=== PATIENT | male | born 1965 | race Hispanic/Latino ===

== ENCOUNTER 2021-06-23 10:35 | Inpatient (IN) | payer SELFPAY ==
[2021-06-23] VITALS (7 sets, daily range): BP systolic 131–187; BP diastolic 71–126
[~2021-06-23] VITALS: Ht 172.7 cm; Wt 59.0 kg
[2021-06-23] MEDS ORDERED: LORAZEPAM 2 MG/ML 1 ML VIAL ONE (10:49)
[2021-06-23] MEDS ORDERED: PANTOPRAZOLE 40 MG/VIAL IVP SCH (11:06)
[2021-06-23] MEDS ORDERED: OCTREOTIDE ACETATE 100 MCG/ML AMP IVP SCH (11:07)
[2021-06-23 11:11] LABS: BASOPHILS % (AUTO) 0.2 % (0.0-5.0); HEMATOCRIT 47.7 % (42-54); LYMPHOCYTES % (AUTO) 5.4 % (21.0-51.0); MEAN CORPUSCULAR HEMOGLOBIN 32.4 pg (27.0-33.0); MEAN CORPUSCULAR HGB CONC 32.9 g/dL (32.0-36.0); MEAN CORPUSCULAR VOLUME 98.4 fL (79-99); MONOCYTES % (AUTO) 8.4 % (3.0-13.0); NEUTROPHILS % (AUTO) 85.7 % (40.0-77.0); PLATELET COUNT (AUTO) 164 K/uL (130-400); RED BLOOD CELL COUNT(AUTO) 4.85 MIL/uL (4.50-6.20); RED CELL DISTRIBUTION WIDTH 12.5 % (11.0-15.5); WHITE BLOOD COUNT (AUTO) 15.4 K/uL (4.8-10.8)
[2021-06-23] MEDS ORDERED: OCTREOTIDE ACETATE 1,000 MCG in DEXTROSE 5%-WATER 195 ML IV SCH (11:30)
[2021-06-23] MEDS ORDERED: 0.9%NACL 100ML 100 ML ONE (11:32)
[2021-06-23 11:33] LABS: ALBUMIN 3.9 g/dL (3.5-5.0); BILIRUBIN,TOTAL 1.8 mg/dL (0.2-1.0); CREATININE 1.3 mg/dL (0.5-1.5); POTASSIUM 4.1 mmol/L (3.5-5.1); TOTAL PROTEIN, SERUM 9.5 g/dL (6.0-8.3)
[2021-06-23 11:37] LABS: INR 1.05 (0.85-1.15); PROTHROMBIN TIME 11.4 SEC (9.6-11.6)
[2021-06-23 11:38] LABS: PARTIAL THROMBOPLASTIN TIME 27.2 SEC (26.3-35.5)
[2021-06-23] MEDS: PANTOPRAZOLE 40MG INJ 80 MG in 0.9%NACL 100ML 100 ML IV SCH ×2 (11:45→21:32)
[2021-06-23] MEDS: ACETAMINOPHEN 500 MG TABLET PO ONE ×2 (13:30→15:13)
[2021-06-23] MEDS ORDERED: ZOSYN 3.375GM+NS 50ML 50 ML IV ONE ×2 (13:30→15:05)
[2021-06-23] MEDS ORDERED: ACETAMINOPHEN 500 MG TABLET ONE (15:06)
[2021-06-23] MEDS ORDERED: ACETAMINOPHEN 650 MG SUPPOSITORY RC ONE (15:36)
[2021-06-23] MEDS ORDERED: ACETAMINOPHEN 650 MG SUPPOSITORY RC STA (15:42)
[2021-06-23 16:05] LABS: HEMATOCRIT 45.7 % (42-54); MEAN CORPUSCULAR HEMOGLOBIN 31.4 pg (27.0-33.0); MEAN CORPUSCULAR HGB CONC 33.7 g/dL (32.0-36.0); MEAN CORPUSCULAR VOLUME 93.3 fL (79-99); PLATELET COUNT (AUTO) 139 K/uL (130-400); RED CELL DISTRIBUTION WIDTH 12.6 % (11.0-15.5); WHITE BLOOD COUNT (AUTO) 12.2 K/uL (4.8-10.8)
[2021-06-23 17:35] LABS: BAND NEUTROPHILS % (MANUAL) 1 % (0-2); LYMPHOCYTES % (MANUAL) 5 % (22-44); MAN.DIFF COMMENT-IMPRESSION MANUAL DIFFERENTIAL; MONOCYTES % (MANUAL) 2 % (2-9); SEGMENTED NEUTROPHILS % 92 % (40-70)
[2021-06-23 17:36] LABS: PLATELET MORPHOLOGY COMMENT ADEQUATE
[2021-06-23] MEDS ORDERED: LORAZEPAM 2 MG/ML 1 ML VIAL IM PRN (18:30)
[2021-06-23] MEDS: ZOSYN 3.375GM+NS 50ML 50 ML IV SCH (21:32)
[2021-06-23 22:39] LABS: APPEARANCE,URINE Clear (CLEAR); BILIRUBIN,URINE Negative (NEGATIVE); COLOR,URINE Yellow (YELLOW); GLUCOSE, URINE (UA) Negative (NEGATIVE); KETONES,URINE Negative (NEGATIVE); LEUKOCYTE ESTERASE ,URINE Negative (NEGATIVE); NITRATE,URINE Negative (NEGATIVE); OCCULT BLOOD,URINE Trace (NEGATIVE); PH,URINE 5.5 (5.0-8.0); PROTEIN,URINE Negative (NEGATIVE); UROBILINOGEN,URINE 0.2 mg/dL (0.2-1.0)
[2021-06-23 22:53] LABS: RBC,URINE 0-1 /HPF (0-1); WBC,URINE None Seen /HPF (0-1)
[2021-06-23 22:54] LABS: BACTERIA,URINE Rare /HPF (None Seen); SQUAMOUS EPITHELIAL CELL,UR None Seen /HPF (0-2)
[2021-06-24] VITALS (10 sets, daily range): BP systolic 132–158; BP diastolic 72–97
[2021-06-24] MEDS: ZOSYN 3.375GM+NS 50ML 50 ML IV SCH ×3 (06:16→21:28)
[2021-06-24] MEDS ORDERED: OCTREOTIDE 1,250 MCG /NS 250ML (DRIP) IV SCH ×2 (07:30)
[2021-06-24] MEDS: PANTOPRAZOLE 40MG INJ 80 MG in 0.9%NACL 100ML 100 ML IV SCH (08:04)
[2021-06-24] MEDS ORDERED: 0.9%NACL 50ML 50 ML IV ONE ×3 (08:05→16:36)
[2021-06-24] MEDS: M.V.I. IV [ADULT] 10 ML, FOLIC ACID 1 MG, THIAMINE HCL 100 MG in 0.9%NACL 1000ML 1,000 ML IV SCH (09:54)
[2021-06-24] MEDS ORDERED: LEVETIRACETAM 500 MG/5 ML SD VIAL IV ONE (11:45)
[2021-06-24] MEDS ORDERED: GADOTERATE MEGLUMINE 10 MMOL/20 ML VIAL IV ONE (15:41)
[2021-06-24] MEDS ORDERED: GADOTERATE MEGLUMINE 5 MMOL/10 ML VIAL IV ONE (15:42)
[2021-06-24] MEDS ORDERED: FOLIC ACID 1 MG TABLET PO ONE (16:00)
[2021-06-24] MEDS: INSULIN HUMULIN R 100 UNIT/ML 3ML SQ SCH ×2 (16:30→21:29)
[2021-06-24 16:39] LABS: BASOPHILS % (AUTO) 0.4 % (0.0-5.0); EOSINOPHILS % (AUTO) 1.3 % (0.0-8.0); LYMPHOCYTES % (AUTO) 17.5 % (21.0-51.0); MEAN CORPUSCULAR HEMOGLOBIN 31.8 pg (27.0-33.0); MEAN CORPUSCULAR HGB CONC 33.3 g/dL (32.0-36.0); MEAN CORPUSCULAR VOLUME 95.4 fL (79-99); MONOCYTES % (AUTO) 9.5 % (3.0-13.0); PLATELET COUNT (AUTO) 124 K/uL (130-400); RED BLOOD CELL COUNT(AUTO) 4.09 MIL/uL (4.50-6.20); RED CELL DISTRIBUTION WIDTH 12.5 % (11.0-15.5); WHITE BLOOD COUNT (AUTO) 7.7 K/uL (4.8-10.8)
[2021-06-24] MEDS: THIAMINE HCL 100 MG TABLET PO SCH (16:50)
[2021-06-24] MEDS: SUCRALFATE 1 GM TABLET PO SCH ×2 (16:50→22:54)
[2021-06-24] MEDS: CEFTRIAXONE 2GM VIAL IVP SCH (16:51)
[2021-06-24 16:55] LABS: BILIRUBIN,TOTAL 1.5 mg/dL (0.2-1.0); CREATININE 0.9 mg/dL (0.5-1.5); POTASSIUM 3.1 mmol/L (3.5-5.1); TOTAL PROTEIN, SERUM 7.8 g/dL (6.0-8.3)
[2021-06-24 16:58] LABS: HEMOGLOBIN A1C 6.2 % (4.0-6.0)
[2021-06-24] MEDS: PANTOPRAZOLE 40 MG/VIAL IVP SCH (21:28)
[2021-06-24] MEDS: LEVETIRACETAM 500 MG TABLET PO SCH (21:28)
[2021-06-24] MEDS: CHLORDIAZEPOXIDE HCL 25 MG CAP PO SCH (21:28)
[2021-06-24] MEDS ORDERED: POTASSIUM CHLORIDE 20MEQ/100ML 100 ML IV PRN (22:00)
[2021-06-24] MEDS ORDERED: LIDOCAINE HCL-MPF 1% 2ML VIAL IV PRN (22:00)
[2021-06-24] MEDS: KCL 20 MEQ ERTAB PO PRN (22:54)
[2021-06-24] MEDS: METRONIDAZOLE 500MG/100ML BAG 100 ML IVPB SCH (22:54)
[2021-06-25] VITALS (7 sets, daily range): BP systolic 119–140; BP diastolic 69–79
[2021-06-25] MEDS ORDERED: 0.9%NACL 50ML 50 ML IV ONE (05:07)
[2021-06-25] MEDS: ZOSYN 3.375GM+NS 50ML 50 ML IV SCH ×3 (05:17→21:49)
[2021-06-25] MEDS: SUCRALFATE 1 GM TABLET PO SCH ×4 (05:17→22:53)
[2021-06-25] MEDS: METRONIDAZOLE 500MG/100ML BAG 100 ML IVPB SCH ×3 (07:01→22:53)
[2021-06-25] MEDS: INSULIN HUMULIN R 100 UNIT/ML 3ML SQ SCH ×4 (07:30→21:00)
[2021-06-25 07:40] LABS: BASOPHILS % (AUTO) 0.5 % (0.0-5.0); EOSINOPHILS % (AUTO) 3.7 % (0.0-8.0); HEMATOCRIT 36.5 % (42-54); LYMPHOCYTES % (AUTO) 13.6 % (21.0-51.0); MEAN CORPUSCULAR HEMOGLOBIN 31.4 pg (27.0-33.0); MEAN CORPUSCULAR HGB CONC 32.9 g/dL (32.0-36.0); MEAN CORPUSCULAR VOLUME 95.5 fL (79-99); MONOCYTES % (AUTO) 11.5 % (3.0-13.0); NEUTROPHILS % (AUTO) 70.3 % (40.0-77.0); PLATELET COUNT (AUTO) 141 K/uL (130-400); RED BLOOD CELL COUNT(AUTO) 3.82 MIL/uL (4.50-6.20); RED CELL DISTRIBUTION WIDTH 12.2 % (11.0-15.5); WHITE BLOOD COUNT (AUTO) 7.6 K/uL (4.8-10.8)
[2021-06-25 08:02] LABS: ALBUMIN 2.8 g/dL (3.5-5.0); BILIRUBIN,TOTAL 1.1 mg/dL (0.2-1.0); POTASSIUM 3.4 mmol/L (3.5-5.1); TOTAL PROTEIN, SERUM 7.2 g/dL (6.0-8.3)
[2021-06-25] MEDS: FOLIC ACID 1 MG TABLET PO SCH (09:26)
[2021-06-25] MEDS: PANTOPRAZOLE 40 MG/VIAL IVP SCH ×2 (09:26→21:49)
[2021-06-25] MEDS: CHLORDIAZEPOXIDE HCL 25 MG CAP PO SCH ×2 (09:30→21:49)
[2021-06-25] MEDS: THIAMINE HCL 100 MG TABLET PO SCH (09:30)
[2021-06-25] MEDS: M.V.I. IV [ADULT] 10 ML, FOLIC ACID 1 MG, THIAMINE HCL 100 MG in 0.9%NACL 1000ML 1,000 ML IV SCH (09:30)
[2021-06-25] MEDS: LEVETIRACETAM 500 MG TABLET PO SCH ×2 (09:30→21:49)
[2021-06-25] MEDS: CEFTRIAXONE 2GM VIAL IVP SCH (16:00)
[2021-06-25] MEDS: POTASSIUM CHLORIDE 10% ELIXIR 20 MEQ/15 ML UDCUP PO PRN (21:49)
[2021-06-26] VITALS (7 sets, daily range): BP systolic 104–140; BP diastolic 62–76
[2021-06-26] MEDS: SUCRALFATE 1 GM TABLET PO SCH ×4 (05:01→22:13)
[2021-06-26] MEDS: METRONIDAZOLE 500MG/100ML BAG 100 ML IVPB SCH ×3 (05:20→22:14)
[2021-06-26] MEDS: ZOSYN 3.375GM+NS 50ML 50 ML IV SCH ×3 (05:20→21:10)
[2021-06-26] MEDS: INSULIN HUMULIN R 100 UNIT/ML 3ML SQ SCH ×4 (05:27→21:22)
[2021-06-26 06:29] LABS: BASOPHILS % (AUTO) 0.5 % (0.0-5.0); EOSINOPHILS % (AUTO) 5.5 % (0.0-8.0); HEMATOCRIT 36.5 % (42-54); LYMPHOCYTES % (AUTO) 15.5 % (21.0-51.0); MEAN CORPUSCULAR HEMOGLOBIN 31.8 pg (27.0-33.0); MEAN CORPUSCULAR HGB CONC 33.2 g/dL (32.0-36.0); MEAN CORPUSCULAR VOLUME 95.8 fL (79-99); MONOCYTES % (AUTO) 12.7 % (3.0-13.0); NEUTROPHILS % (AUTO) 65.5 % (40.0-77.0); PLATELET COUNT (AUTO) 120 K/uL (130-400); RED BLOOD CELL COUNT(AUTO) 3.81 MIL/uL (4.50-6.20); RED CELL DISTRIBUTION WIDTH 12.4 % (11.0-15.5); WHITE BLOOD COUNT (AUTO) 6.4 K/uL (4.8-10.8)
[2021-06-26 06:45] LABS: ALBUMIN 2.8 g/dL (3.5-5.0); CREATININE 0.9 mg/dL (0.5-1.5); POTASSIUM 3.4 mmol/L (3.5-5.1); TOTAL PROTEIN, SERUM 7.2 g/dL (6.0-8.3)
[2021-06-26] MEDS: KCL 20 MEQ ERTAB PO PRN (06:51)
[2021-06-26] MEDS: POTASSIUM CHLORIDE 10% ELIXIR 20 MEQ/15 ML UDCUP PO PRN (06:55)
[2021-06-26] MEDS: PANTOPRAZOLE 40 MG/VIAL IVP SCH ×2 (09:04→21:10)
[2021-06-26] MEDS: LEVETIRACETAM 500 MG TABLET PO SCH ×2 (09:05→21:11)
[2021-06-26] MEDS: CHLORDIAZEPOXIDE HCL 25 MG CAP PO SCH ×2 (09:05→21:11)
[2021-06-26] MEDS: FOLIC ACID 1 MG TABLET PO SCH (09:05)
[2021-06-26] MEDS: THIAMINE HCL 100 MG TABLET PO SCH (09:05)
[2021-06-26] MEDS: CEFTRIAXONE 2GM VIAL IVP SCH (15:28)
[2021-06-27 00:03] VITALS: BP 105/61
[2021-06-27 04:02] VITALS: BP 133/73
[2021-06-27] MEDS: SUCRALFATE 1 GM TABLET PO SCH ×2 (04:33→10:28)
[2021-06-27] MEDS: ZOSYN 3.375GM+NS 50ML 50 ML IV SCH ×2 (04:34→13:21)
[2021-06-27 04:45] LABS: BASOPHILS % (AUTO) 0.4 % (0.0-5.0); EOSINOPHILS % (AUTO) 4.9 % (0.0-8.0); LYMPHOCYTES % (AUTO) 25.4 % (21.0-51.0); MEAN CORPUSCULAR HEMOGLOBIN 31.7 pg (27.0-33.0); MEAN CORPUSCULAR HGB CONC 32.9 g/dL (32.0-36.0); MEAN CORPUSCULAR VOLUME 96.3 fL (79-99); MONOCYTES % (AUTO) 16.6 % (3.0-13.0); NEUTROPHILS % (AUTO) 52.4 % (40.0-77.0); PLATELET COUNT (AUTO) 133 K/uL (130-400); RED BLOOD CELL COUNT(AUTO) 3.53 MIL/uL (4.50-6.20); RED CELL DISTRIBUTION WIDTH 12.6 % (11.0-15.5); WHITE BLOOD COUNT (AUTO) 6.7 K/uL (4.8-10.8)
[2021-06-27 05:06] LABS: ALBUMIN 2.6 g/dL (3.5-5.0); BILIRUBIN,TOTAL 0.7 mg/dL (0.2-1.0); POTASSIUM 3.3 mmol/L (3.5-5.1); TOTAL PROTEIN, SERUM 6.6 g/dL (6.0-8.3)
[2021-06-27] MEDS: INSULIN HUMULIN R 100 UNIT/ML 3ML SQ SCH ×2 (06:25→11:30)
[2021-06-27] MEDS: METRONIDAZOLE 500MG/100ML BAG 100 ML IVPB SCH ×2 (06:26→13:21)
[2021-06-27] MEDS ORDERED: KCL 20 MEQ ERTAB PO SCH (08:00)
[2021-06-27 08:22] VITALS: BP 135/75
[2021-06-27] MEDS: CHLORDIAZEPOXIDE HCL 25 MG CAP PO SCH (08:34)
[2021-06-27] MEDS: FOLIC ACID 1 MG TABLET PO SCH (08:34)
[2021-06-27] MEDS: LEVETIRACETAM 500 MG TABLET PO SCH (08:34)
[2021-06-27] MEDS: PANTOPRAZOLE 40 MG/VIAL IVP SCH (08:35)
[2021-06-27] MEDS: THIAMINE HCL 100 MG TABLET PO SCH (08:35)
[2021-06-27] MEDS ORDERED: MAGNESIUM OXIDE 400 MG TABLET PO SCH (10:00)
[2021-06-27 12:09] VITALS: BP 122/64
[2021-06-27] MEDS ORDERED: LIB25 PO (13:52)
[2021-06-27] MEDS ORDERED: FOLI1 PO (13:52)
[2021-06-27] MEDS ORDERED: LEVE-43 PO (13:52)
[2021-06-27] MEDS ORDERED: THIA100T91 PO (13:52)
[2021-06-27] MEDS ORDERED: PANT40TA55 PO (13:54)
[2021-06-27 16:08] VITALS: BP 122/70
== END 2021-06-27 17:25 | disposition home or self-care (01) | DRG 101 ==
LOC: EDH 10:35 → EDBD 10:35 → EDHIP 10:36 → OBSVTOIN 10:36 → EDHIP 14:58 → UNDOADMOB 14:58 → 3BH 06-26 04:33 → 4CH 06-26 20:05
PROVIDERS: ADMIT Internal Medicine; ATTEND Internal Medicine
DX: G40.89 Other seizures (principal); F10.239 Alcohol dependence with withdrawal, unspecified; K92.0 Hematemesis; D72.829 Elevated white blood cell count, unspecified; Z51.5 Encounter for palliative care; B35.9 Dermatophytosis, unspecified; E11.9 Type 2 diabetes mellitus without complications; I10 Essential (primary) hypertension; Z20.822 Contact with and (suspected) exposure to COVID-19; Z86.11 Personal history of tuberculosis; Z87.01 Personal history of pneumonia (recurrent); Z90.5 Acquired absence of kidney
CPT/HCPCS: 36415; 70450; 70553; 71045; 71250; 76705; 80053; 81001; 82270; 82948; 83036; 83735; 84145; 85025; 85610; 85730; 86738; 86850; 86900; 86901; 87040; 87449; 87635; 87804; 97039; 99291; C9113; C9803; G0378; J0696; J1815; J1953; J2060; J2354; J2543; J3411; J3490; J7030; J7050; J7060